=== PATIENT | female | born 2000 | race Caucasian/White ===

== ENCOUNTER 2024-07-31 02:58 | Emergency (ER) | payer OTHER, SELFPAY ==
[2024-07-31 03:05] VITALS: BP 119/79
[2024-07-31 03:47] VITALS: BP 124/93; BP 139/91; BP 146/91; PULSE 77; PULSE 81; PULSE 84
[2024-07-31] MEDS: NSS 1000 IV (03:48)
--- NOTE | 2024-07-31 03:53 | ED.GENMED ---
History of Present Illness
General
Chief Complaint: Fainting Sensation
Source: patient
Exam Limitations: none
Time Seen by Provider: 07/31/24 03:43
Nursing documentation reviewed up to this point in time: agreed with
History of Present Illness
History of Present Illness:
Pleasant 24-year-old female presents to the emergency department with lightheaded, dizziness, and nausea. 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 She pulled over and called her sergeant to
escorted her to the hospital. Patient denies any medical history. Denies abdominal pain. She has had miscarriages in the past. She is currently on her menses. Denies previous syncopal episode. Denies chest pain or shortness of breath.
Past History
Past History
ED Past Medical History: None
ED Past Surgical History: Gynecological
Social History
Tobacco: Non-smoker
Alcohol: None
Drug: None
Personal: Other (Noncontributory)
Living: with family
Employment: Employed
Family History
Family History: Other (Noncontributory)
Review of Systems
Review of Systems
Allergies reviewed?: Yes
All Other Systems: ROS reviewed and negative except as documented in HPI and ROS
Constitutional: Reports no symptoms
EENT: Reports no symptoms
Respiratory: Reports no symptoms
Cardiac: Reports no symptoms
ABD/GI: Reports nausea
: Reports no symptoms
Musculoskeletal: Reports no symptoms
Skin: Reports no symptoms
Neurological: Reports dizzy and weakness
Endocrine: Reports no symptoms
Hematologic/Lymphatic: Reports no symptoms
Psychiatric: Reports no symptoms
Phy Exam
General Physical Exam
General Presentation: well appearing and no apparent distress
General Skin: warm and dry
General Habitus: normal
General Mental: alert
General Hydration: appears well hydrated
ENT Exam
ENT Exam: EOMI, pharynx normal, neck supple and normocephalic
Eye Exam
Eye Exam: PERRL, cornea clear and conjunctiva normal
Cardiovascular Exam
Cardiovascular Exam: regular rate/rhythm, no edema, no murmur and normal peripheral pulses
Pulmonary Exam
Pulmonary Exam: lungs clear, no respiratory distress, no rales, no crackles, no rhonchi, no stridor, no wheezing and no cough
Gastrointestinal Exam
Gastrointestinal Exam: normal bowel sounds, non tender, soft, no organomegaly, no pulsatile mass and non distended
Neurological Exam
Neurological Exam: alert, oriented x3, no motor deficits and speech normal
Musculoskeletal Exam
Musculoskeletal Exam: full ROM and no edema
Skin Exam
Skin Exam: normal color, warm/dry, no rash and no petechia
Psychiatric Exam
Psychiatric Exam: normal mood/affect
Course
Orders/Labs/Results
Orders:
Orders
07/31/24 03:00
Electrocardiogram (*1) Urgent
Reason for Study: Vertigo / Dizzy
EKG- Treatment ONCE
07/31/24 03:21
Test Result ONCE
07/31/24 03:39
Complete Blood Count/With Diff Urgent
Comprehensive Metabolic Panel Urgent
HCG, Serum Qualitative Screen Urgent
Comment: Notify provider if positive test present
TSH Urgent
07/31/24 03:48
0.9% Sodium Chloride 1000 ml [Nss] 1,000 ml IV BOLUS
07/31/24 03:56
0.9% Sodium Chloride 1000 ml [Nss] 1,000 ml IV BOLUS
07/31/24 05:03
Ondansetron Injectable [Zofran] 4 mg .ROUTE .STK-MED ONE
07/31/24 05:05
Ondansetron Injectable [Zofran] 4 mg IV NOW STA
07/31/24 05:19
Ondansetron Orally Disint [Zofran Odt (Orally Disintegrating)] 4 mg PO NOW STA
Abnormal Lab Results
07/31/24
03:39
MCH 26.6 L pg
(27.0-31.0)
MCHC 32.7 L g/dL
(33.0-37.0)
Glucose 120 H mg/dl
(70-99)
07/31/24 03:39
07/31/24 03:39
Vital Signs
Initial and Last Documented VS:
Initial Vital Signs
Temp Pulse Resp BP Pulse Ox
98.3 F 68 18 119/79 99
07/31/24 03:05 07/31/24 03:05 07/31/24 03:05 07/31/24 03:05 07/31/24 03:05
Last Documented Vital Signs
Temp Pulse Resp BP Pulse Ox
98.3 F 68 18 110/69 99
07/31/24 03:05 07/31/24 03:05 07/31/24 03:05 07/31/24 04:00 07/31/24 03:05
*Critical Care Note
Total Time (30-74mins, 75-104mins- exclusive of procedures): Not Applicable
Update Note
Update Note:
Patient states that she is feeling much better. She wishes to be discharged home. She was able to ambulate right about the department without any issue. She had a steady gait. She is not orthostatic.
ED Attending Note
-
Portions of this chart may have been created with voice recognition software.� Occasional wrong word or��sound alike� substitutions may have occurred due to the inherent limitations of voice recognition software.
Discharge Plan
Departure
Patient Disposition: Home (Routine Discharge)
Date of Disposition: 07/31/24
Time of Disposition: 05:20
Patient with high blood pressure during this ER visit?: No
Condition: Good
Discharge Problem:
Dizziness
Instructions: Near Fainting (DC)
Prescriptions:
New
ondansetron 4 mg Tablet,Disintegrating
4 mg PO TIDPRN PRN (Reason: nausea/vomiting) Qty: 10 0RF
No Action
PNV cmb#95-ferrous fumarate-FA [] 1 EACH tablet
1 ea PO DAILY
acetaminophen 325 MG tablet
650 mg PO Q4HPRN PRN (Reason: mild pain) 0RF
ibuprofen 600 MG tablet
600 mg PO Q4HPRN PRN (Reason: moderate pain/cramps) 0RF
Referrals:
[facility] [Provider Group]
[facility] [Outside]
NONE,* [Family Provider] -
Activity Restrictions/Additional Instructions:
It was a pleasure meeting you and taking part in your care. We hope for your continued healing and wellness.
Please read discharge instructions in their entirety. However, they are for general education and may not describe your exact diagnosis at discharge. Information on your ER visit and medical conditions were discussed with you along with appropriate
follow up information...
If indicated, please take your medications as instructed and indicated on discharge paperwork.
Please schedule a follow up appointment as directed. Call to schedule an appointment
Please return to the emergency department with ANY change in, persisting, or worsening of symptoms. If any of your symptoms do not improve, or persist, or become more severe within 6-12 hours, please return to the emergency department for further
care.
Please return to the emergency department if you develop a headache, neck pain/stiffness, fever greater than 100.4F, chest pain, shortness of breath, persistent nausea, vomiting, slurred speech, difficulty walking, numbness/tingling, weakness, signs
of infection or any other symptoms that are worrisome to you.
If you have any questions or concerns please do not hesitate to call the Hospital at or E-mail me directly at [email or web address]
Interventions
Interventions:
*Risk Screen - Suicide Last Done: 07/31/24 03:05
*General Assessment Last Done: 07/31/24 03:05
*Neglect/Abuse Screening Last Done: 07/31/24 03:05
*ED COVID-19 Vaccine History Last Done: 07/31/24 03:05
ED- Cardiac Assessment Last Done: 07/31/24 05:27
ED- Neurological Assessment Last Done: 07/31/24 05:27
Discharge Date and Time
Print Language: ETHIOPIAN
[2024-07-31 03:56] LABS: Glucose - Point of Care 99 mg/dl (70-99)
[2024-07-31 03:57] LABS: % Basophils 0.6 % (0-2); % Eosinophils 1.2 % (0-6); % Immature Granulocytes 0.3 % (0-0.5); % Lymphocytes 27.9 % (20.5-51.1); Absolute Basophils 0.1 10^3/uL (0-0.2); Absolute Eosinophils 0.1 10^3/uL (0-0.7); Absolute Lymphocytes 2.5 10^3/uL (1.2-3.4); Absolute Monocytes 0.5 10^3/uL (0.1-0.6); Absolute Neutrophils 5.7 10^3/uL (1.4-6.5); Hematocrit 41.3 % (37.0-47.0); Hemoglobin 13.5 g/dL (12.0-16.0); Mean Corp Hgb Conc. 32.7 g/dL (33.0-37.0); Mean Corpuscular Hgb 26.6 pg (27.0-31.0); Mean Corpuscular Volume 81.3 fL (81.0-99.0); Mean Platelet Volume 9.8 fL (7.4-10.4); Nucleated Red Blood Cells % 0 %; Platelet Count 233 10^3/uL (130-400); Red Blood Cell Count 5.08 10^6/uL (4.20-5.40); White Blood Cell Count 8.9 10^3/uL (4.8-10.8)
[2024-07-31 04:00] VITALS: BP 110/69
[2024-07-31 04:06] LABS: HCG, Serum Qualitative Screen Negative
[2024-07-31 04:11] LABS: ALT (SGPT) 16 U/L (0-35); AST (SGOT) 22 U/L (14-36); Albumin 4.8 g/dl (3.5-5.0); Alkaline Phosphatase 70 U/L (38-126); Blood Urea Nitrogen 13 mg/dl (7-17); Calcium 9.1 mg/dl (8.4-10.2); Carbon Dioxide 25 mmol/L (22-30); Chloride 102 mmol/L (98-107); Glucose 120 mg/dl (70-99); Potassium 3.6 mmol/L (3.5-5.1); Sodium 140 mmol/L (135-145); Total Bilirubin 0.8 mg/dl (0.2-1.3); Total Protein 8.1 g/dl (6.3-8.2); eGFR > 60.00
[2024-07-31 04:41] LABS: TSH 2.53 uIU/ml (0.47-4.68)
[2024-07-31] MEDS: ZOFRAN 4 MG IV (05:05)
== END 2024-07-31 05:40 | disposition home or self-care (01) ==
LOC: EMR 02:58
PROVIDERS: EMERGENCY PHYSICIAN Student in an Organized Health Care Education/Training Program
DX: R42 Dizziness and giddiness (principal)
CPT/HCPCS: 99284; 96374; 96361; 80053; 82962; 84443; 84703; 85025; 93005

== ENCOUNTER 2024-12-16 05:45 | Emergency (ER) | payer SELFPAY ==
[2024-12-16 05:47] VITALS: BP 129/85
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
== END 2024-12-16 06:30 | disposition home or self-care (01) ==
LOC: EMR 05:45
PROVIDERS: EMERGENCY PHYSICIAN Student in an Organized Health Care Education/Training Program
DX: T15.92XA Foreign body on external eye, part unspecified, left eye, initial encounter (principal); Y08.89XA Assault by other specified means, initial encounter; Y93.89 Activity, other specified; Y99.0 Civilian activity done for income or pay
CPT/HCPCS: 99282